=== PATIENT | female | born 1955 | race Caucasian/White ===

== ENCOUNTER 2017-12-24 04:39 | Emergency (ER) | payer BC ==
[2017-12-24 04:50] VITALS: BP 151/88; PULSE 78; RESP 18; TEMP 98.2
--- NOTE | 2017-12-24 06:05 | XR ---
EXAM: XR Chest, 2 Views CLINICAL HISTORY: ITS.REASON XR Reason: difficulty breathing TECHNIQUE: Frontal and lateral views of the chest. COMPARISON: Chest radiograph on 07/14/2015 FINDINGS: Hardware: None. Lungs/pleura: Normal. No focal consolidation. No pleural effusion or pneumothorax. Heart/mediastinum: Normal. No cardiomegaly. Soft tissues: Unremarkable. Bones: No acute fracture. Upper abdomen: Normal. IMPRESSION: No acute disease identified.
[2017-12-24 06:49] LABS: Basophils % (A) 0 %; Eosinophils # (A) 0.1 k/uL (0-0.7); Eosinophils % (A) 2 %; HCT 41.6 % (34.0-46.0); HGB 14.1 gm/dL (11.4-16.0); Lymphocytes # (A) 0.9 k/uL (1.0-4.8); Lymphocytes % (A) 12 %; MCH 29.4 pg (25.0-35.0); MCHC 33.9 g/dL (31.0-37.0); MCV 86.8 fL (80.0-100.0); Mean Platelet Volume 6.7; Monocytes # (A) 0.5 k/uL (0-1.0); Monocytes % (A) 7 %; Neutrophils # (A) 6.3 k/uL (1.3-7.7); Neutrophils % (A) 78 %; Platelet Count 248 k/uL (150-450); RBC 4.79 m/uL (3.80-5.40); RDW 13.7 % (11.5-15.5)
[2017-12-24 07:02] LABS: ALT 43 U/L (9-52); AST 35 U/L (14-36); Albumin 4.1 g/dL (3.5-5.0); Alkaline Phosphatase 96 U/L (38-126); Anion Gap 12 mmol/L; Blood Urea Nitrogen 19 mg/dL (7-17); Carbon Dioxide 24 mmol/L (22-30); Chloride 102 mmol/L (98-107); Glucose 145 mg/dL (74-99); Potassium 3.5 mmol/L (3.5-5.1); Sodium 138 mmol/L (137-145); Total Bilirubin 0.8 mg/dL (0.2-1.3); Total Protein 7.5 g/dL (6.3-8.2)
[2017-12-24 07:10] LABS: Prothrombin Time 9.5 sec (9.0-12.0)
[2017-12-24 07:20] LABS: Creatine Kinase 53 U/L (30-135)
[2017-12-24 07:30] LABS: Creatine Kinase MB 0.4 ng/mL (0.0-2.4); Troponin I <0.012 ng/mL (0.000-0.034)
[2017-12-24 07:32] LABS: Partial Thromboplastin Time 21.8 sec (22.0-30.0)
--- NOTE | 2017-12-24 08:19 | XR ---
EXAMINATION TYPE: XR soft tissue neck DATE OF EXAM: 12/24/2017 COMPARISON: NONE HISTORY: 62-year-old female with pain, choking sensation TECHNIQUE: 2 views FINDINGS: The nasopharyngeal and oropharyngeal airways are patent. No subglottic airway narrowing. Epiglottis a nd prevertebral soft tissues are within normal limits. There may be mild hypertrophy of the palatine tonsils. No retained radiopaque foreign body seen. Patient partially edentulous. IMPRESSION: Mild palatine tonsillar hypertrophy. Otherwise, airway remains patent. No prevertebral soft tissue sw elling.
--- NOTE | 2017-12-24 08:31 | ED ---
General Adult HPI - General Chief complaint: Shortness of Breath Stated complaint: Choking sensation,HA Time Seen by Provider: 12/24/17 07:27 Source: patient, RN notes reviewed, old records reviewed Mode of arrival: ambulatory Limitations: no limitations - History of Present Illness Initial comments: This is a 62-year-old female the ER for evaluation. Patient is seen with multiple nonspecific complaints. Patient's main complaints revolve around neck pain, she also had a recent possible syncopal event. Patient's family is at bedside states patient has had symptoms ongoing for months now no resolution of symptoms no finding diagnosis. She is an upper scope and lower scopes in different imaging tests as well as seen ENT and GI. No significant findings. Patient continues to feel like she has something in her throat. Symptoms worse at night and currently resolved - Related Data Home Medications Medication Instructions Recorded Confirmed Cholecalciferol [Vitamin D3] 5,000 unit PO TH 12/24/17 12/24/17 Hydrochlorothiazide [Hydrodiuril] 25 mg PO DAILY 12/24/17 12/24/17 Ibuprofen [Motrin] 600 mg PO Q6HR PRN 12/24/17 12/24/17 Allergies Allergy/AdvReac Type Severity Reaction Status Date / Time No Known Allergies Allergy Verified 12/24/17 09:02 Review of Systems ROS Statement: Those systems with pertinent positive or pertinent negative responses have been documented in the HPI. ROS Other: All systems not noted in ROS Statement are negative. Past Medical History Past Medical History: No Reported History History of Any Multi-Drug Resistant Organisms: None Reported Past Surgical History: No Surgical Hx Reported Additional Past Surgical History / Comment(s): cyst removed at 16 years old Past Psychological History: No Psychological Hx Reported Smoking Status: Former smoker Past Alcohol Use History: Occasional Past Drug Use History: None Reported General Exam Limitations: no limitations General appearance: alert, in no apparent distress, anxious Head exam: Present: atraumatic, normocephalic, normal inspection Eye exam: Present: normal appearance, PERRL, EOMI. Absent: scleral icterus, conjunctival injection, periorbital swelling ENT exam: Present: normal exam, mucous membranes moist Neck exam: Present: normal inspection. Absent: tenderness, meningismus, lymphadenopathy Respiratory exam: Present: normal lung sounds bilaterally. Absent: respiratory distress, wheezes, rales, rhonchi, stridor Cardiovascular Exam: Present: regular rate, normal rhythm, normal heart sounds. Absent: systolic murmur, diastolic murmur, rubs, gallop, clicks GI/Abdominal exam: Present: soft, normal bowel sounds. Absent: distended, tenderness, guarding, rebound, rigid Extremities exam: Present: normal inspection, full ROM, normal capillary refill. Absent: tenderness, pedal edema, joint swelling, calf tenderness Back exam: Present: normal inspection Neurological exam: Present: alert, oriented X3, CN II-XII intact Psychiatric exam: Present: normal affect, normal mood Skin exam: Present: warm, dry, intact, normal color. Absent: rash Course Vital Signs 12/24/17 04:46 Temperature 98.2 F Pulse Rate 78 Respiratory 18 Rate Blood Pressure 151/88 O2 Sat by Pulse 96 Oximetry Medical Decision Making - Medical Decision Making 62 female the ER for evaluation, patient feels like she has full body or something wrong with her neck. Multiple imaging tests done here negative. Patient can be discharged - Lab Data Result diagrams: 12/24/17 06:33 12/24/17 06:33 Lab Results 12/24/17 12/24/17 12/24/17 Range/Units 06:33 06:33 06:33 WBC 8.0 (3.8-10.6) k/uL RBC 4.79 (3.80-5.40) m/uL Hgb 14.1 (11.4-16.0) gm/dL Hct 41.6 (34.0-46.0) % MCV 86.8 (80.0-100.0) fL MCH 29.4 (25.0-35.0) pg MCHC 33.9 (31.0-37.0) g/dL RDW 13.7 (11.5-15.5) % Plt Count 248 (150-450) k/uL Neutrophils % 78 % Lymphocytes % 12 % Monocytes % 7 % Eosinophils % 2 % Basophils % 0 % Neutrophils # 6.3 (1.3-7.7) k/uL Lymphocytes # 0.9 L (1.0-4.8) k/uL Monocytes # 0.5 (0-1.0) k/uL Eosinophils # 0.1 (0-0.7) k/uL Basophils # 0.0 (0-0.2) k/uL PT (9.0-12.0) sec INR (<1.2) APTT (22.0-30.0) sec Sodium 138 (137-145) mmol/L Potassium 3.5 (3.5-5.1) mmol/L Chloride 102 (98-107) mmol/L Carbon Dioxide 24 (22-30) mmol/L Anion Gap 12 mmol/L BUN 19 H (7-17) mg/dL Creatinine 0.78 (0.52-1.04) mg/dL Est GFR (CKD-EPI)AfAm >90 (>60 ml/min/1.73 sqM) Est GFR (CKD-EPI)NonAf 81 (>60 ml/min/1.73 sqM) Glucose 145 H (74-99) mg/dL Calcium 9.0 (8.4-10.2) mg/dL Total Bilirubin 0.8 (0.2-1.3) mg/dL AST 35 (14-36) U/L ALT 43 (9-52) U/L Alkaline Phosphatase 96 (38-126) U/L Total Creatine Kinase 53 (30-135) U/L CK-MB (CK-2) 0.4 (0.0-2.4) ng/mL CK-MB (CK-2) Rel Index 0.8 Troponin I <0.012 (0.000-0.034) ng/mL Total Protein 7.5 (6.3-8.2) g/dL Albumin 4.1 (3.5-5.0) g/dL TSH (0.465-4.680) mIU/L Free T4 (0.78-2.19) ng/dL 12/24/17 12/24/17 Range/Units 06:33 06:33 WBC (3.8-10.6) k/uL RBC (3.80-5.40) m/uL Hgb (11.4-16.0) gm/dL Hct (34.0-46.0) % MCV (80.0-100.0) fL MCH (25.0-35.0) pg MCHC (31.0-37.0) g/dL RDW (11.5-15.5) % Plt Count (150-450) k/uL Neutrophils % % Lymphocytes % % Monocytes % % Eosinophils % % Basophils % % Neutrophils # (1.3-7.7) k/uL Lymphocytes # (1.0-4.8) k/uL Monocytes # (0-1.0) k/uL Eosinophils # (0-0.7) k/uL Basophils # (0-0.2) k/uL PT 9.5 (9.0-12.0) sec INR 1.0 (<1.2) APTT 21.8 L (22.0-30.0) sec Sodium (137-145) mmol/L Potassium (3.5-5.1) mmol/L Chloride (98-107) mmol/L Carbon Dioxide (22-30) mmol/L Anion Gap mmol/L BUN (7-17) mg/dL Creatinine (0.52-1.04) mg/dL Est GFR (CKD-EPI)AfAm (>60 ml/min/1.73 sqM) Est GFR (CKD-EPI)NonAf (>60 ml/min/1.73 sqM) Glucose (74-99) mg/dL Calcium (8.4-10.2) mg/dL Total Bilirubin (0.2-1.3) mg/dL AST (14-36) U/L ALT (9-52) U/L Alkaline Phosphatase (38-126) U/L Total Creatine Kinase (30-135) U/L CK-MB (CK-2) (0.0-2.4) ng/mL CK-MB (CK-2) Rel Index Troponin I (0.000-0.034) ng/mL Total Protein (6.3-8.2) g/dL Albumin (3.5-5.0) g/dL TSH 5.350 H (0.465-4.680) mIU/L Free T4 0.87 (0.78-2.19) ng/dL - Radiology Data Radiology results: report reviewed (CT soft tissue neck is negative), image reviewed Disposition Clinical Impression: Neck pain, Throat pain, Foreign body sensation in throat Disposition: HOME SELF-CARE Condition: Good Instructions: Normal Exam (ED) Is patient prescribed a controlled substance at d/c from ED?: No Referrals: Amira Walls MD [Primary Care Provider] - 1-2 days
--- NOTE | 2017-12-24 08:52 | CT ---
EXAMINATION TYPE: CT soft tissue neck wo con DATE OF EXAM: 12/24/2017 COMPARISON: Radiograph same day HISTORY: 62-year-old female choking sensation TECHNIQUE: Contiguous axial scanning of the soft tissues of the neck without IV contrast. Coronal and sagittal reconstructions performed. CT DLP: 593 mGycm Automated exposure control for dose reduction was used. FINDINGS: Visualized intracranial structures, orbits and globes, paranasal sinuses, and mastoid air cells appea r clear. Lack of IV contrast limits assessment of the mucosal space. Allowing for noncontrast technique, the nasopharynx is clear. Mild to moderate bilateral palatine tonsillar hypertrophy. Calcifications in the left palatine tonsil suggesting sequela of prior infection. Epiglottis and prevertebral soft tissues are within normal limits. The glottic and subglottic airway as well as the tracheal column are clear. Mild dependent atelectasis in the visualized upper lungs with mild biapical pleural-parenchymal scarr ing. Possible 1.3 cm nodule in the right lobe of the thyroid gland versus streak artifacts causing this ap pearance. The submandibular and parotid glands are satisfactory. Scattered nonenlarged lymph nodes are present on both sides of the neck. Borderline size but nonenlar ged lymph nodes measuring up to 1.3 cm are present in the upper cervical spine, refer to coronal imag e 60. No cervical lymphadenopathy by CT size criteria. No retained radiopaque foreign body seen. [id number] degenerative disc disease C5-C6. IMPRESSION: 1. 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 CALCIFICATIONS IN THE LEFT PALATINE TON SILS SUGGESTS SEQUELA OF PRIOR INFECTION. NO AIRWAY COMPROMISE. 2. POSSIBLE 1.3 CM NODULE IN THE RIGHT LOBE OF THE THYROID GLAND. NONEMERGENT FOLLOW-UP THYROID ULTRA SOUND CAN FURTHER EVALUATE.
[2017-12-24 11:31] LABS: T4, Free (Free Thyroxine) 0.87 ng/dL (0.78-2.19)
== END 2017-12-24 09:58 | disposition home or self-care (01) ==
LOC: EC 04:39
DX: M54.2 Cervicalgia (principal); R07.0 Pain in throat; R09.89 Other specified symptoms and signs involving the circulatory and respiratory systems; R06.02 Shortness of breath; Z87.891 Personal history of nicotine dependence; Z79.899 Other long term (current) drug therapy
CPT/HCPCS: 36415; 70360; 70490; 71046; 80053; 82550; 82553; 84439; 84443; 84484; 85025; 85610; 85730; 93005; 99285

== ENCOUNTER → 2018-01-11 | Outpatient (CLI) | payer BC ==
--- NOTE | 2018-01-11 14:54 | US ---
EXAMINATION TYPE: US thyroid st tissue head/neck DATE OF EXAM: 01/11/2018 COMPARISON: CT Neck December 24 2814 CLINICAL HISTORY: E07.9 Thyroid Mass. GLAND SIZE: Right Lobe: 4.3 x 1.5 x 1.6 cm Overall Parenchyma: heterogenous Left Lobe: 3.9 x 1.2 x 1.3 cm Overall Parenchyma: heterogeneous Isthmus Thickness: 0.3cm NODULES RIGHT: # of nodules measured on right: 1 1. 0.8 X 0.8 x 0.7 cm hypoechoic solid nodule at the mid pole with well-defined margins. This nodu le is wider than tall and shows intranodular vascularity. LEFT: # of nodules measured on left: 0 ISTHMUS: # of nodules measured in the isthmus: 0 Bilateral neck scanned: couple of right neck lymph nodes seen with larger upper neck node = 0.9 x 0.6 x 0.4cm; multiple lymph nodes seen upper and lateral neck with largest node upper left = 2.2 x 1.4 x 0.7cm. Benign appearance with subcentimeter on short axis noted. Right Parathyroid level upper neck: hypoechoic oval nodule is noted lateral to right thyroid = 0.5 x 03 x 0.4cm , nonspecific Correlating with CT is only 9 mm well-defined hypoechoic solid nodule posteriorly mid to lower pole l evel IMPRESSION: No suspicious greater than 1 cm thyroid nodules are identified.
== END | disposition home or self-care (01) ==
LOC: RADUSWWP 13:10
PROVIDERS: ATTEND Internal Medicine
DX: E04.1 Nontoxic single thyroid nodule (principal)
CPT/HCPCS: 76536

== ENCOUNTER → 2021-03-21 | Outpatient (CLI) | payer MEDICARE, BC ==
--- NOTE | 2021-03-22 12:45 | MM ---
Reason for exam: screening (asymptomatic). History: Patient is postmenopausal. Took hormonal contraceptives for 4 years. Physical Findings: A clinical breast exam by your physician is recommended on an annual basis and results should be correlated with mammographic findings. MG 3D Screening Mammo W/Cad Bilateral CC and MLO view(s) were taken. No prior studies available for comparison. Finding: There is a suspicious, high architectural distortion with calcifications located 7 cm from the nipple in the upper outer quadrant, middle position of the right breast. Focal asymmetry left upper outer quadrant, middle position. ASSESSMENT: Incomplete: need additional imaging evaluation, BI-RAD 0 RECOMMENDATION: Special view mammogram of both breasts. If lesion persists on supplemental views, image directed ultrasound is recommended. [facility] will attempt to contact patient to return for supplemental views and ultrasound if indicated.
== END | disposition home or self-care (01) ==
LOC: RADMAMWWP 13:38
PROVIDERS: ATTEND Family Medicine
DX: Z12.31 Encounter for screening mammogram for malignant neoplasm of breast (principal); Z78.0 Asymptomatic menopausal state
CPT/HCPCS: 77063; 77067

== ENCOUNTER → 2021-03-27 | Outpatient (CLI) | payer MEDICARE, BC ==
--- NOTE | 2021-03-27 11:16 | MM ---
Reason for exam: additional evaluation requested from abnormal screening. Last mammogram was performed less than 1 month ago. History: Patient is postmenopausal. Took hormonal contraceptives for 4 years. Physical Findings: Nurse did not find any significant physical abnormalities on exam. MG 3D Work Up W/Cad VERONICA Bilateral spot compression CC, spot compression MLO, and LM view(s) were taken. Prior study comparison: March 21, 2021, bilateral MG 3d screening mammo w/cad. The breast tissue is heterogeneously dense. This may lower the sensitivity of mammography. Finding: There are intermediate concern, suspicious segmental, fine calcifications in the upper outer quadrant, middle position of the right breast. These results were verbally communicated with the patient and result sheet given to the patient on 03/27/21. ASSESSMENT: Suspicious, BI-RAD 4 RECOMMENDATION: Stereotactic core biopsy of the right breast. Follow-up diagnostic mammogram of the left breast in [address] Mora's office with mammographic findings and has scheduled an appointment for the patient for 04/03/21 at 12:[address] Villanueva. PRELIMINARY REPORT CALLED AND FAXED TO DR. VILLANUEVA ON 03/27/21.
== END | disposition home or self-care (01) ==
LOC: RADMAMWWP 07:08
PROVIDERS: ATTEND Family Medicine
DX: R92.2 Inconclusive mammogram (principal); Z78.0 Asymptomatic menopausal state
CPT/HCPCS: 77066; G0279; 77062

== ENCOUNTER → 2021-05-20 | Day surgery (SDC) | payer MEDICARE, BC ==
[2021-05-20 07:22] VITALS: RESP 16
[2021-05-20 09:25] VITALS: BP 143/85; PULSE 61; TEMP 98.6
--- NOTE | 2021-05-20 10:12 | MM ---
EXAMINATION TYPE: MG stereo VAD BX RT DATE OF EXAM: 05/20/2021 COMPARISON: 03/27/2021 and correlation ultrasound same day CLINICAL HISTORY: 65-year-old female R92.8, abnormal mammogram, referred for stereotactic biopsy of right breast microcalcifications. TECHNIQUE: Stereotactic guided core biopsy of the upper outer quadrant right breast microcalcifications. FINDINGS: The procedure of stereotactic guided core biopsy was explained to the patient. Benefits, alternatives, and risks were discussed. An informed consent was then obtained. The shortness pathway was a lateral approach. However, a superior approach was chosen and the calcifications are best seen in this projection. I perform the localization followed by the remainder of the procedure. A vacuum assisted biopsy gun was used to obtain 14 core samples. The patient tolerated the procedure well without any immediate complication. The patient was kept in the radiology department for short stay after the procedure and then discharged home in stable condition. Targeted calcifications are identified in specimen mammogram. Post biopsy mammogram shows the clip to appear in satisfactory position relative to the targeted area of concern on the preprocedure images. Some residual microcalcifications remain to indicate the site of interest. IMPRESSION: SUCCESSFUL, UNCOMPLICATED STEREOTACTIC GUIDED CORE BIOPSY OF UPPER-OUTER QUADRANT RIGHT BREAST MICROCALCIFICATIONS. FULL PATHOLOGY RESULTS TO FOLLOW. IMPRESSION: 1. Follow-up pathology results. 2. The sampled calcifications are indeterminate. We note that they became more loosely grouped in appearance on the true lateral view which makes them somewhat less suspicious. Bilateral breast ultrasound was also performed immediately prior to biopsy and no suspicious mass or other abnormality was seen. 3. If benign biopsy results, six-month follow-up bilateral mammograms will be recommended. 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 See Surgical Pathology Cancer Case Summary and comment. Recommendation Surgical consult of the right breast. JESSD
--- NOTE | 2021-05-20 11:21 | USB ---
Reason for exam: clinical finding. History: Patient is postmenopausal. Took hormonal contraceptives for 4 years. US Breast Limited BILAT Right limited breast ultrasound including focal area of concern, retroareolar and axilla demonstrates no cystic or solid lesion seen. Left limited breast ultrasound including focal area of concern, retroareolar and axilla demonstrates no cystic or solid lesion seen. Right scanned 9-12 o'clock. Left scanned 12-3 o'clock. ASSESSMENT: Suspicious, BI-RAD 4 RECOMMENDATION: Stereotactic core biopsy of the right breast. (calcifications)
== END ==
LOC: RADMAMWWP 07:01
PROVIDERS: ATTEND Surgery
DX: C50.911 Malignant neoplasm of unspecified site of right female breast (principal); C50.411 Malignant neoplasm of upper-outer quadrant of right female breast; Z17.0 Estrogen receptor positive status [ER+]
CPT/HCPCS: 88305; 88342; 88341; 19081; 76642; A4648; J2001

== ENCOUNTER → 2021-06-12 | Outpatient (CLI) | payer MEDICARE, BC ==
--- NOTE | 2021-06-17 06:20 | BMR ---
EXAMINATION TYPE: MR breast BILAT wo/w con DATE OF EXAM: 06/12/2021 COMPARISON: 3-D screening mammogram March 21, 2021 BI-RADS 0. Bilateral diagnostic mammogram Decemb er 2020 BI-RADS 4. Diagnostic ultrasound bilateral breasts limited May 20, 2021 BI-RADS 4 HISTORY: Rt breast cancer. Invasive moderately differentiated ductal carcinoma grade 2 and intermedia te grade DCIS on stereotactic guided core biopsy May 20, 2021 TECHNIQUE: A series of fat and water weighted images in the long and short axis views of both breasts are obtained in conjunction with dynamic contrast MRI with subtraction technique. The patient was i njected with 10 mL intravenous Gadavist gadolinium contrast. Three-dimensional and additional postp rocessing imaging is created on independent workstation and reviewed during official interpretation o f this study. FINDINGS: Scattered fibroglandular tissue throughout both breasts is redemonstrated. T2 and STIR weig hted images show no significant cystic change or suspicious fluid collections in either breast. No martinez spicious axillary adenopathy is identified. Lymph nodes slightly more prominent in number and slightl y more prominent in the left axilla but no definitive abnormal adenopathy. Dynamic postcontrast imagi ng shows fairly moderate symmetric background enhancement making evaluation slightly suboptimal. Xochilt yed dynamic imaging shows no suspicious internal mammary adenopathy. With regards to the left breast diffuse nodular enhancement begins at level of nipple centrally fibro glandular tissue extending superiorly into the slightly outer portion. Postprocessing dynamic imaging shows predominantly benign gradual enhancement, few small areas of nonspecific plateau type enhancem ent noted. No suspicious enhancing masses with rapid uptake and washout identified. No abnormal skin thickening is seen. The chest wall is intact. With regards to the right breast there is a irregular marginated area of enhancement middle depth upp er outer aspect with susceptibility artifact from biopsy clip corresponding to the area of biopsy-pro franko cancer. Biopsy clip is along the superior margin measuring approximately 4.0 cm AP diameter by 1. 2 cm transversely by 2.3 cm craniocaudal dimension. Computer measures maximum AP diameter 4.6 cm. No additional suspicious enhancing masses or pathologic enhancement. No abnormal skin thickening. The ch est wall is intact. No additional suspicious finding. IMPRESSION: Identification of known biopsy-proven carcinoma right breast upper outer quadrant middle depth. Slightly suboptimal study due to background enhancement with nodular component more prominent on the left breast. No convincing MRI evidence for malignancy in the left breast are multicentric inv olvement in the right breast. Slightly larger area of involvement suspected on MRI versus comparison with calcification distribution on mammogram. BI-RADS 6 biopsy-proven cancer right breast. BI-RADS 2 benign findings left breast. Recommendation: Appropriate surgical and oncologic management known right breast malignancy
== END | disposition home or self-care (01) ==
LOC: RADMRIMAIN 14:26
PROVIDERS: ATTEND Surgery
DX: C50.411 Malignant neoplasm of upper-outer quadrant of right female breast (principal)
CPT/HCPCS: C8937; C8908; A9585; 77049

== ENCOUNTER → 2021-06-21 | Outpatient (CLI) | payer MEDICARE, BC ==
[2021-06-21 14:06] VITALS: BP 116/76; PULSE 65; RESP 16; TEMP 97.8
--- NOTE | 2021-06-21 14:43 | P.GSHP ---
History of Present Illness H&P Date: 06/21/21 Chief Complaint: right breast invasive ductal carcinoma Delmis is a 65 year old white female seen in for a recently diagnosed right breast invasive ductal carcinoma. [place] [id number]. This revealed an area of concern in the right breast and in the left breast focal asymmetry was noted. In the right breast in the area of architectural distortion with calcifications 7 cm from the nipple in the upper outer quadrant was noted. [place] [id number]. This revealed a suspicious area in the right breast and a stereotactic core biopsy to be done. A follow-up diagnostic mammogram m ammogram of the left breast in 6 months was recommended. The patient then underwent a an ultrasound of both breastcystic or solid lesions were seen in either breast. She then underwent a stero-tactic core biopsy of the right breast. This was performed on . This revealed an invasive ductal carcinoma grade 2 ER/VT positive HER-2/martin negative. She subsequently had her case presented at tumor board and the area of calcification was felt to be more possible more extensive than could be seen well on mammography and a bilateral MRI was performed. The bilateral MRI revealed the area of calcifications and increased uptake to be approximately 2 cm x 1.2 cm x 2.3 cm. The computer measured the AP diameter to be 4.6 cm. No additional suspicious enhancing masses or pathologic findings were noted. The patient is therefore T3 N0 M0 ER/VT positive HER-2/martin negative lesion. Did not had a mammogram for some period of time. She did not feel anything in her breast but wanted to have the screening performed. Did not notice any lumps masses or nodules of concern in either breast. She is not complaining of any skin changes. She wasn't complaining of any increased breast pain. She had not had any trauma or infection in the breast. She had never had surgery on her breast. Caffeine: 5 cokes/day nicotine: none chocolate: rare Family History: father: of lung cancer/smoker mother: kidney cancer of this sister: of dementia Hormonal History: menarche: 12 [id number] 1, breast fed: yes, age at first : 29 menopause: 43 BCP: 5 years She has never used hormones Surgical history: pilonidal cyst removed Medical History: none History: Nicotine: Negative Alcohol: none Drugs: none - EENT Eyes: denies blurred vision, denies pain Ears: deny: decreased hearing, tinnitus Ears, nose, mouth and throat: Denies headache, Denies sore throat - Breasts Breasts: bilateral: as per HPI - Cardiovascular Cardiovascular: Denies chest pain, Denies shortness of breath - Respiratory Respiratory: Denies cough, Denies 7 - Gastrointestinal Gastrointestinal: Denies abdominal pain, Denies diarrhea, Denies nausea, Denies vomiting - Genitourinary (Female) Genitourinary: Denies dysuria, Denies hematuria - Menstruation Menstruation: Reports postmenopausal - Musculoskeletal Musculoskeletal: Denies myalgias - Integumentary Integumentary: Denies pruritus, Denies rash - Neurological Neurological: Denies numbness, Denies weakness - Psychiatric Psychiatric: Denies anxiety, Denies depression - Endocrine Endocrine: Denies fatigue, Denies weight change - Hematologic/Lymphatic Comment: none - Allergic/Immunologic Allergic/Immunologic: Reports as per HPI Past Medical History Past Medical History: No Reported History History of Any Multi-Drug Resistant Organisms: None Reported Past Surgical History: No Surgical Hx Reported Additional Past Surgical History / Comment(s): pilonidal cyst removed at 16 years old Past Anesthesia/Blood Transfusion Reactions: No Reported Reaction Past Psychological History: No Psychological Hx Reported Smoking Status: Never smoker Past Alcohol Use History: Occasional Past Drug Use History: None Reported Medications and Allergies Home Medications Medication Instructions Recorded Confirmed Type No Known Home Medications 05/20/21 06/21/21 History Allergies Allergy/AdvReac Type Severity Reaction Status Date / Time No Known Allergies Allergy Verified 06/21/21 14:02 Surgical - Exam Vital Signs Temp Pulse Resp BP Pulse Ox 97.8 F 65 16 116/76 98 06/21/21 14:03 06/21/21 14:03 06/21/21 14:03 06/21/21 14:03 06/21/21 14:03 BMI 34.5 - General no distress - Eyes normal ocular movement - ENT no hearing loss - Neck trachea midline - Respiratory normal respiratory effort - Cardiovascular Rhythm: regular Heart Sounds: normal: S1, S2 - Abdomen Abdomen: soft - Integumentary normal turgor - Neurologic no disoriented, no combative - Musculoskeletal normal gait, normal posture - Psychiatric oriented to time, oriented to person, oriented to place, speech is normal, memory intact Breast Exam: BRA: 38D inspection: Bilateral grade 2 ptosis Palpation: Right breast: Multi-positional exam increased fullness upper-outer quadrant no other dominant masses or nodules of concern Right axilla: No adenopathy of concern Left breast: Multi-positional exam fibrocystic changes no dominant masses or nodules of concern Left axilla: No adenopathy of concern Results Examination of the mammogram/and MRI were performed. Ultrasound report was reviewed. This was done in conjunction with Dr. Coelho. It appears that the lesion in the right breast is an area of microcalcifications that extends approximately 4 cm x 1.2 cm x 2.3 cm. Assessment and Plan Assessment: Impression: 1. Right breast invasive ductal carcinoma right breast, ER+Pr+ HER-2 negative T2 N0 M0 2. Patient has no other medical comorbidities Plan: 1. We will discuss surgical intervention and patient will make decision as to operative approach CC: Dr. Mora
== END ==
LOC: WWCWWP 13:54
PROVIDERS: ATTEND Surgery
DX: C50.911 Malignant neoplasm of unspecified site of right female breast (principal); Z87.891 Personal history of nicotine dependence

== ENCOUNTER → 2021-12-30 | Outpatient (CLI) | payer MEDICARE, BC ==
--- NOTE | 2021-12-30 10:36 | BD ---
EXAMINATION TYPE: Axial Bone Density DATE OF EXAM: 12/30/2021 COMPARISON: NONE CLINICAL HISTORY: 66 years year old Female. ICD-10 CODE: C50.411 BREAST CA Height: 5 FT 6 1/2 IN Weight: 230 FRAX RISK QUESTIONS: Alcohol (3 or more units per day): NO Family History (Parent hip fracture): NO Glucocorticoids (More than 3mos): NO (Ex: prednisone, prednisolone, methylprednisolone, dexamethasone, and hydrocortisone). History of Fracture in Adulthood: NO Secondary Osteoporosis: 1. Type 1 Diabetes: NO 2. Hyperthyroidism: NO 3. Menopause before 45: YES 4. Malnutrition: NO 5. Chronic liver disease: NO Rheumatoid Arthritis: NO Current Tobacco Use: NO RISK FACTORS HISTORY OF: Surgery to Spine/Hip(right/left)/Wrist (right/left): NO Family History of Osteoporosis: NO Active: YES Diet low in dairy products/other sources of calcium: NO Postmenopausal woman: YES Take estrogen and/or progesterone medications: NO Lost more than 2 inches in height since high school: NO Frequent falls: NO Poor Health: GOOD Hyperparathyroidism: NO Adrenal Insufficiency: NO MEDICATIONS: Additional Medications: LETROZOLE, WEIGHT LOSS MEDS, Additional History: BREAST CANCER 2020 RADIATION EXAM MEASUREMENTS: Bone mineral densitometry was performed using the [employer] System. Bone mineral density as measured about the Lumbar spine is: ----- L1-L4(G/cm2): 1.031 T Score Values are as follows: ----- L1: -1.7 ----- L2: -1.2 ----- L3: -0.9 ----- L4: -1.4 ----- L1-L4: -1.2 PREV DONE ELSEWHERE Bone mineral density about the R hip (g/cm2): 0.841 Bone mineral density about the L hip (g/cm2): 0.814 T Score values are as follows: -----R Neck: -1.4 -----L Neck: -1.6 -----R Total: -0.8 -----L Total: -1.0 PREV DONE ELSEWHERE FRAX%s: The graph provided illustrates a 9.1 % chance for a major osteoporotic fx and a 1.2 % chance for the hips probability for fx in 10 years time. IMPRESSION: Osteopenia (T Score between -2.5 and -1). There is slightly increased risk of fracture and the patient may be considered for treatment. Re-Screen 2-5 years. NOTE: T-SCORE=SD OF THE YOUNG ADULT MEAN.
== END | disposition home or self-care (01) ==
LOC: RADBDWWP 09:19
PROVIDERS: ATTEND Internal Medicine Hematology & Oncology
DX: C50.411 Malignant neoplasm of upper-outer quadrant of right female breast (principal); M85.89 Other specified disorders of bone density and structure, multiple sites
CPT/HCPCS: 77080

== ENCOUNTER 2022-11-22 19:41 | Emergency (ER) | payer MEDICARE, BC ==
[2022-11-22 20:16] VITALS: RESP 18; TEMP 98.1
--- NOTE | 2022-11-22 22:49 | ED ---
General Adult HPI - General Source: patient, RN notes reviewed Mode of arrival: ambulatory Limitations: no limitations <Nohemi Whitfield - Last Filed: 11/23/22 03:25> - General Source: patient, RN notes reviewed <Esau Lopez - Last Filed: 11/23/22 04:25> - General Chief complaint: Extremity Injury, Lower Stated complaint: Right knee pain Time Seen by Provider: 11/22/22 22:48 - History of Present Illness Initial comments: Symmetric female with no significant past medical history presents to the emergency department with sudden onset right knee pain. She reports no injury or trauma. She reports that she is able to ambulate without difficulty. Denies shortness of breath, history of blood clots (Nohemi Whitfield) Patient is a 67-year-old female who was originally evaluated as a quick found. Presents with nontraumatic right knee pain. Symptoms began yesterday and slightly Worse. Describes as a "catching feeling when tried to extend my leg." Denies any injuries, falls, but does endorse some increased use. Has known arthritis in bilateral knees. Presents for further evaluation. X-rays were already completed. I evaluated the patient and she was placed in room 2.Denies any swelling. Denies any shortness of breath. Denies any chest pain or abdominal pain. (Esau Lopez) - Related Data Home Medications Medication Instructions Recorded Confirmed No Known Home Medications 05/20/21 06/21/21 Allergies Allergy/AdvReac Type Severity Reaction Status Date / Time No Known Allergies Allergy Verified 06/21/21 14:02 Review of Systems ROS Other: All systems not noted in ROS Statement are negative. <Nohemi Whitfield - Last Filed: 11/23/22 03:25> ROS Other: All systems not noted in ROS Statement are negative. <Esau Lopez - Last Filed: 11/23/22 04:25> ROS Statement: Those systems with pertinent positive or pertinent negative responses have been documented in the HPI. Review of Systems: CONST: Denies fever EYES: Denies blurry vision ENT: Denies nasal congestion C/V: Denies Chest pain RESP: Denies shortness of breath GI: Denies abdominal pain : Denies dysuria SKIN: Denies rash. MSK: Endorses right knee pain NEURO: Denies headache (Esau Lopez) Past Medical History Past Medical History: No Reported History History of Any Multi-Drug Resistant Organisms: None Reported Past Surgical History: No Surgical Hx Reported Additional Past Surgical History / Comment(s): pilonidal cyst removed at 16 years old Past Anesthesia/Blood Transfusion Reactions: No Reported Reaction Past Psychological History: No Psychological Hx Reported Smoking Status: Never smoker Past Alcohol Use History: Occasional Past Drug Use History: None Reported <Nohemi Whitfield - Last Filed: 11/23/22 03:25> General Exam Limitations: no limitations <Nohemi Whitfield - Last Filed: 11/23/22 03:25> <Esau Lopez - Last Filed: 11/23/22 04:25> - General Exam Comments Initial Comments: Visual Physical Exam Vital signs reviewed General: Well-appearing, nontoxic, no acute distress. Head: Normocephalic, atraumatic Eyes: PERRLA, EOMI ENT: Airway patent Chest: Nonlabored breathing Skin: No visual rash, normal skin tone Neuro: Alert and oriented 3 Musculoskeletal: No gross abnormalities (Nohemi Whitfield) General: Appears in no acute distress. HEAD: Normal with no signs of head trauma. EYES: EOMI. ENT: Hearing grossly intact. RESPIRATORY: No respiratory distress. C/V: Regular rate and rhythm. ABD: Abdomen is nondistended. EXT: No obvious deformity. Normal range of motion of the right knee. Tetanus palpation on bilateral joint lines as well as anterior aspect. Able to hold in full extension. Able to fully flex the knee passively and actively. Pain on full extension and when bearing weight. History just her need to straighten it. Kezia's test within normal limits. Appears stable. Neurovascular intact. No edema. No skin changes. SKIN: No rashes or lesions observed on exposed skin. NEURO: Alert and oriented. (Esau Lopez) Course Vital Signs 11/22/22 11/22/22 20:13 23:57 Temperature 98.1 F Pulse Rate 86 62 Respiratory 18 18 Rate Blood Pressure 154/81 126/81 O2 Sat by Pulse 98 98 Oximetry Medical Decision Making <Nohemi Whitfield - Last Filed: 11/23/22 03:25> <Esau Lopez - Last Filed: 11/23/22 04:25> - Medical Decision Making I performed a quick note portion of this chart. Signed Nohemi Whitfield PA-C (Nohemi Whitfield) Was pt. sent in by a medical professional or institution ([facility]IR[facility] Cifuentes, SUPERVISOR PHOSPHATIC FERTILIZER, urgent care, hospital, or longterm...) When possible be specific @ -No Did you speak to anyone other than the patient for history (EMS, parent, family, police, friend...)? What history was obtained from this source @ -No Did you review nursing and triage notes (agree or disagree)? Why? @ -I reviewed and agree with nursing and triage notes Were old charts reviewed (outside hosp., previous admission, EMS record, old EKG, old radiological studies, urgent care reports/EKG's, longterm records)? Report findings @ -No old charts were reviewed Differential Diagnosis (chest pain, altered mental status, abdominal pain women, abdominal pain men, vaginal bleeding, weakness, fever, dyspnea, syncope, headache, dizziness, GI bleed, back pain, seizure, CVA, palpatations, mental health, musculoskeletal)? @ -Differential Musculoskeletal Muscular strain, contusion, ligament sprain, fracture, arthritis, septic arthritis, bursitis, cellulitis, muscle spasm, nerve compression, DVT, arterial occlusion, herpes zoster, electrolyte abnormality, tumor.... This is not meant to be in all inclusive list EKG interpreted by me (3pts min.). @ -None done X-rays interpreted by me (1pt min.). @ -Right knee x-ray shows no obvious acute injury. Arthritis present. CT interpreted by me (1pt min.). @ -None done U/S interpreted by me (1pt. min.). @ -None done What testing was considered but not performed or refused? (CT, X-rays, U/S, labs)? Why? @ -None What meds were considered but not given or refused? Why? @ -None Did you discuss the management of the patient with other professionals (professionals i.e. QUIRINO Cifuentes, SUPERVISOR PHOSPHATIC FERTILIZER, lab, RT, psych nurse, long term care social worker, day care attendant, teacher, personnel officer, case checker)? Give summary @ -No Was smoking cessation discussed for >3mins.? @ -No Was critical care preformed (if so, how long)? @ -No Were there social determinants of health that impacted care today? How? (Homelessness, low income, unemployed, alcoholism, drug addiction, transportation, low edu. Level, literacy, decrease access to med. care, fpc, rehab)? @ -No Was there de-escalation of care discussed even if they declined (Discuss DNR or withdrawal of care, Hospice)? DNR status @ -No What co-morbidities impacted this encounter? (DM, HTN, Smoking, COPD, CAD, Canc er, CVA, ARF, Chemo, Hep., AIDS, mental health diagnosis, sleep apnea, morbid obesity)? @ -None Was patient admitted / discharged? Hospital course, mention meds given and route, prescriptions, significant lab abnormalities, going to OR and other pertinent info. @ -Based on her presentation and physical exam, do believe this is likely some form of possible knee sprain, arthritis pain, or possible ligamentous or meniscus injury to the patient's right knee. No obvious trauma. Exam is relatively unremarkable except for pain on full extension. X-ray shows no obvious acute injury. Patient be placed in a knee immobilizer, given crutches and instructions to follow up with orthopedic physician next week. She was in agreement this plan. Vital signs within acceptable limits. I instructed the patient to follow up with their PCP in the next 1-3 days. I explained that the patient should return to the emergency department if they experience any worsening symptoms. Strict return precautions were discussed with the patient. The patient expressed understanding of these instructions. I answered all questions that the patient had. The patient was discharged home in fair condition with their prescriptions and follow up information. Undiagnosed new problem with uncertain prognosis? @ -No Drug Therapy requiring intensive monitoring for toxicity (Heparin, Nitro, Insulin, Cardizem)? @ -No Were any procedures done? @ -No Diagnosis/symptom? @ -Right knee pain, atraumatic Acute, or Chronic, or Acute on Chronic? @ -Acute Uncomplicated (without systemic symptoms) or Complicated (systemic symptoms)? @ -Uncomplicated Side effects of treatment? @ -No Exacerbation, Progression, or Severe Exacerbation? @ -No Poses a threat to life or bodily function? How? (Chest pain, [place], [place], pneumonia, PE, COPD, DKA, ARF, appy, cholecystitis, CVA, Diverticulitis, Homicidal, Suicidal, threat to staff... and all critical care pts) @ -No (Esau Lopez) Disposition <Nohemi Whitfield - Last Filed: 11/23/22 03:25> Is patient prescribed a controlled substance at d/c from ED?: No Time of Disposition: 23:25 <Esau Lopez - Last Filed: 11/23/22 04:25> Clinical Impression: Right knee pain Disposition: HOME SELF-CARE Condition: Fair Instructions (If sedation given, give patient instructions): Knee Sprain (ED), Crutch Instructions (ED) Referrals: Holger Mora DO [Primary Care Provider] - 1-2 days Yassine Gonsalez MD [Medical Doctor] - 1-2 days
--- NOTE | 2022-11-22 23:08 | XR ---
EXAMINATION TYPE: XR knee complete RT DATE OF EXAM: 11/22/2022 COMPARISON: None HISTORY: Right knee pain TECHNIQUE: 3V right knee FINDINGS: There is mild narrowing of the medial and lateral compartment joint space. Small lateral ti bial plateau spur is present. No joint effusion is evident. Medial femoral condylar and medial tibial plateau spurring is noted. Follow up exams can be performed 7-10 days. IMPRESSION: 1. Mild degenerative joint changes right knee
[2022-11-22] MEDS ORDERED: ACET/COD 300 MG/30 MG STARTER PACK 6 TAB BTL PO STA (23:26)
[2022-11-22] MEDS ORDERED: ACETAMINOPHEN TAB 500 MG TAB PO STA (23:29)
[2022-11-22 23:58] VITALS: BP 126/81; PULSE 62
== END 2022-11-22 23:58 | disposition home or self-care (01) ==
LOC: EC 19:41
DX: M25.561 Pain in right knee (principal)
CPT/HCPCS: 73562; 99283; L1830

== ENCOUNTER → 2024-03-23 | Outpatient (CLI) | payer MEDICARE ==
--- NOTE | 2024-03-24 15:38 | BD ---
EXAMINATION TYPE: Axial Bone Density DATE OF EXAM: 03/23/2024 CLINICAL HISTORY: 68 years old Female. ICD-10 CODE: C50.411 BREAST CANCER , Additional History: Height: 65.5 in Weight: 218 lbs EXAM MEASUREMENTS: Bone mineral densitometry was performed using the [employer] System. Bone mineral density as measured about the Lumbar spine is: ----- L1-L4(G/cm2): 1.009 T Score Values are as follows: ----- L1: -1.9 ----- L2: -1.5 ----- L3: -0.4 ----- L4: -2.1 ----- L1-L4: -1.4 Z Score Values are as follows: ----- L1: -1.3 ----- L2: -1.0 ----- L3: 0.2 ----- L4: -1.6 ----- L1-L4: -0.9 Bone mineral density has: Decreased -2.1% since study of: 12/30/2021 Bone mineral density about the R hip (g/cm2): 0.838 Bone mineral density about the L hip (g/cm2): 0.852 T Score values are as follows: -----R Neck: -1.9 -----L Neck: -1.8 -----R Total: -1.3 -----L Total: -1.2 Z Score values are as follows: -----R Neck: -0.9 -----L Neck: -0.8 -----R Total: -0.7 -----L Total: -0.5 Bone mineral density has: Decreased -5.1% since study of: 12/30/2021 FRAX%s: The graph provided illustrates a 10.6% chance for a major osteoporotic fx and a 1.9% chance f or the hips probability for fx in 10 years time. IMPRESSION: Osteopenia (T Score between -2.5 and -1). There is slightly increased risk of fracture and the patient may be considered for treatment. Re-Screen 2-5 years. NOTE: T-SCORE=SD OF THE YOUNG ADULT MEAN. [facility], , 03/24/2024 3:36 PM
== END | disposition home or self-care (01) ==
LOC: RADBDWWP 15:49
PROVIDERS: ATTEND Internal Medicine Hematology & Oncology
DX: C50.411 Malignant neoplasm of upper-outer quadrant of right female breast (principal); M85.89 Other specified disorders of bone density and structure, multiple sites; M12.9 Arthropathy, unspecified; Z71.3 Dietary counseling and surveillance
CPT/HCPCS: 77080